=== PATIENT | male | born 1970 | race Caucasian/White ===

== ENCOUNTER → 2019-01-14 | Outpatient (CLI) | payer OTHER ==
--- NOTE | 2019-01-14 12:05 | XR ---
EXAMINATION TYPE: XR finger LT DATE OF EXAM: 01/14/2019 COMPARISON: NONE HISTORY: Pain TECHNIQUE: Two views are submitted. FINDINGS: The osseous structures are intact. The joint spaces are preserved and there is no acute fracture or dislocation. IMPRESSION: 1. No definite acute fracture or dislocation if symptoms persist, follow-up study in 7 to 10 days wo uld be suggested
== END | disposition home or self-care (01) ==
LOC: RADXRYALE 09:17
PROVIDERS: ATTEND Family Medicine
DX: M79.645 Pain in left finger(s) (principal)